=== PATIENT | male | born 1950 ===

== ENCOUNTER 2019-12-22 06:10 | Day surgery (SDC) | payer OTHER, BC ==
--- NOTE | 2019-12-17 09:13 | HP ---
DATE OF ADMISSION: 12/22/2019 DATE OF DICTATION: 11/09/2019 DATE OF SURGERY: Undetermined REASON FOR ADMISSION: Right inguinal hernia. BRIEF HISTORY: This is a 69-year-old gentleman whose history dates back to September 24 when he first found a lump in his right groin. His saw his primary care physician on September 25 and was subsequently referred to a surgeon to have his hernia repaired. Patient saw the surgeon and subsequently decided just prior to surgery to cancel this surgery and seek a 2nd opinion. At this present time, he has no complaints of pain. However, the hernia does cause him discomfort at times. He has had no bouts of nausea, no vomiting or change in bowel habits. Also upon further questioning, he states he has occasional discomfort in left groin as well but denies having a lump in the left groin. PAST MEDICAL HISTORY: Significant again for peptic ulcer disease. He has COPD, hypertension. PAST SURGICAL HISTORY: None. ALLERGIES: None. MEDICATION: Lisinopril, baby aspirin, Advair, and simvastatin. SOCIAL HISTORY: Does not smoke nor drink. No history of drug use. PHYSICAL EXAMINATION: General: Patient examined in the erect and supine position. Abdomen: Soft, nontender, nondistended. He has an obvious right inguinal hernia of moderate to large size. The hernia is reducible. The right scrotum and testicle are within normal limits. No obvious findings in the left groin but some laxity noted. IMPRESSION/PLAN: Right inguinal hernia: This is a 69-year-old gentleman who is symptomatic from a right inguinal hernia. At this point, I would recommend a laparoscopic repair of the right inguinal hernia with mesh. At the time of laparoscopy, the left side should be examined, and if an occult hernia is noted, it will be repaired in the same setting. If no hernia is seen, a piece of mesh will be left in direct inguinal space for reinforcement. The indications, alternatives, and complications of the procedure discussed. Questions answered. Will plan on obtaining written consent the day of surgery. Fela TRIMBLE [id number] cc: [place] cc: Fran Shepherd M.D.
[2019-12-21 10:12] VITALS: BMI 24.4
[2019-12-22] MEDS ORDERED: TAMSULOSIN HCL 0.4 MG CAP ONE (06:55)
[2019-12-22] MEDS ORDERED: ceFAZolin SODIUM 1 GM VIAL ONE ×2 (06:56→07:20)
[2019-12-22] MEDS ORDERED: LIDOCAINE HCL/PF 2% SDV 5ML VIAL ONE (07:20)
[2019-12-22] MEDS ORDERED: PROPOFOL 20 ML ONE (07:20)
[2019-12-22] MEDS ORDERED: KETAMINE HCL 200 MG/20 ML VIAL ONE (07:20)
[2019-12-22] MEDS ORDERED: KETOROLAC TROMETHAMINE 30 MG/1 ML VIAL ONE (07:20)
[2019-12-22] MEDS ORDERED: DEXAMETHASONE SOD PHOSPHATE 4 MG/1 ML VIAL ONE (07:20)
[2019-12-22] MEDS ORDERED: SUCCINYLCHOLINE CHLORIDE 200 MG/10 ML SYRINGE ONE (07:20)
[2019-12-22] MEDS ORDERED: ROCURONIUM BROMIDE 50 MG/5 ML SYRINGE ONE ×2 (07:20→08:28)
[2019-12-22] MEDS ORDERED: SODIUM CHLORIDE 0.9% P/F 10 ML VIAL IJ ONE (07:20)
[2019-12-22] MEDS ORDERED: MIDAZOLAM HCL 2 MG/2 ML SINGLE DOSE VIAL ONE ×2 (07:35)
[2019-12-22] MEDS ORDERED: DEXAMETHASONE SOD PHOSPHATE/PF 10 MG/ML SDV ONE (07:36)
[2019-12-22] MEDS ORDERED: ceFAZolin 2 GRAM PREMIX BAG IVPB ONE (08:14)
--- NOTE | 2019-12-22 08:18 | HP ---
DATE OF ADMISSION: 12/22/2019 DATE OF DICTATION: 12/22/2019 BRIEF HISTORY: This is a 69-year-old gentleman whom I had met in October 2019. At that time I dictated a full H&P. However, due to [facility] guidelines, I have to redictate this and the patient was reevaluated today. Please refer to my original H&P for complete details. He has a right inguinal hernia for which he is here today for repair. PAST MEDICAL HISTORY: Peptic ulcer disease, COPD, hypertension. PAST SURGICAL HISTORY: None. ALLERGIES: None. MEDICATIONS: Lisinopril, baby aspirin, Advair, simvastatin. SOCIAL HISTORY: He does not smoke or drink. PHYSICAL EXAMINATION: Abdomen: He has an obvious right inguinal hernia of moderate to large size. Genitalia: The right scrotum and testicles are within normal limits. On the left side there is laxity but no obvious hernia. IMPRESSION/PLAN: Right inguinal hernia: This is a 69-year-old gentleman with a right inguinal hernia for which he is here today for a laparoscopic repair. At the time of laparoscopy, the left side will be examined and repaired if a hernia is noted. Please refer to my H&P from November 09, 2019, for complete details. Fela TRIMBLE [id number] CC: Francisco Stark M.D. MTDD
[2019-12-22] MEDS ORDERED: GLYCOPYRROLATE 0.2 MG/1 ML VIAL ONE (08:54)
[2019-12-22] MEDS ORDERED: NEOSTIGMINE METHYLSULFATE 0.5 MG/ML - 10 ML MDV ONE (08:55)
[2019-12-22] MEDS ORDERED: ONDANSETRON 4 MG/2 ML VIAL IVPUSH PRN (08:56)
[2019-12-22] MEDS ORDERED: oxyCODONE HCL 5 MG TABLET PO PRN (08:56)
[2019-12-22] MEDS ORDERED: LACTATED RINGERS SOLUTION 1,000 ML IV SCH (09:00)
[2019-12-22 11:29] VITALS: TEMP 97.8
[2019-12-22 14:38] VITALS: BP 139/70; PULSE 65
--- NOTE | 2019-12-22 17:49 | OP ---
DATE OF OPERATION: 12/22/2019 PREOPERATIVE DIAGNOSIS: Right inguinal hernia. POSTOPERATIVE DIAGNOSIS: Right indirect inguinal hernia, marked attenuation of the direct inguinal floor, left indirect inguinal hernia. PROCEDURE: Bilateral laparoscopic inguinal herniorrhaphy with mesh. SURGEON: Rl Sharp MD. OCEAN EXPORT ACCOUNT MANAGER: London Modi DO. ANESTHESIOLOGIST: Whitney Domínguez MD. ANESTHESIA: General anesthesia. ESTIMATED BLOOD LOSS: Minimal. SPECIMEN: None. PROCEDURE: This is a 69-year-old gentleman symptomatic from a large right inguinal hernia. He is now here for operative repair. Patient identified and appropriately positioned on operating room table after placement of general anesthesia and prepped and draped in the usual sterile fashion with ChloraPrep. An infraumbilical incision was made deep in the subcutaneous tissue. The fascia of the rectus muscle on the right identified, and the muscle split under direct vision. A dissector balloon followed by structural balloon placed, then also under direct vision a suprapubic 11-mm port. The patient had the following structures on the right side identified: Pubic tubercle, Ancelmo ligament, inferior epigastric vessels, spermatic cord, and lateral abdominal wall. During this dissection, he is noted to have a very large indirect inguinal hernia sac that was chronically stuck. A 5-mm left lower quadrant port placed through direct vision helped facilitate dissection of this sac back in the preperitoneal space. Once this was accomplished, a 5.5 x 6 piece of Versatex mesh with keyhole placed through the suprapubic port site. The mesh wrapped around the cord structures laterally to reconstruct the internal ring. Laterally, mesh anchored to anterior abdominal wall and lateral abdominal wall. Medially, mesh anchored to anterior abdominal wall, pubic tubercle, and Ancelmo ligament. The mesh was placed in such a fashion it covered direct inguinal floor since the area was markedly attenuated. Upon completion of the right side, similar structures on the left side identified. On the left side, the direct space was not attenuated. He had a small indirect inguinal hernia sac which reduced back in the preperitoneal space with blunt dissection. Another 5.5 x 6 piece of Versatex mesh was keyholed, placed through the suprapubic port site. The mesh wrapped around the cord structures laterally to reconstruct the internal inguinal ring. Laterally, mesh anchored to anterior abdominal wall, pubic tubercle, and Ancelmo ligament. The mesh well overlapped in the midline, anchored to anterior abdominal wall, Ancelmo ligament, and pubic tubercle. The preperitoneal space desufflated under direct vision. The operative field examined, noted to be hemostatic. The fascia at the infraumbilical and supraumbilical port site reapproximated with interrupted 0 Vicryl suture. All skin closed with 4-0 subcuticular Biosyn followed by Dermabond. At the conclusion of this case, sponge counts correct. ATTESTATION: Brief operative note handwritten on the preprinted form. [facility] queried prior to giving narcotics. RL SHARP M.D. [id number]
== END 2019-12-22 14:10 | disposition home or self-care (01) ==
LOC: JASU-SURG 06:10
PROVIDERS: ATTEND Surgery
PROC: 0YUA4JZ Supplement Bilateral Inguinal Region with Synthetic Substitute, Percutaneous Endoscopic Approach (ICD-10-PCS; principal; 2019-12-22 08:00)
DX: K40.20 Bilateral inguinal hernia, without obstruction or gangrene, not specified as recurrent (principal)
CPT/HCPCS: 94760